=== PATIENT | female | born 1965 | race African-American/Black ===

== ENCOUNTER 2017-09-09 09:39 | Emergency (ER) | payer MEDICAID ==
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
[2017-09-09] MEDS ORDERED: HYDROcodone/Acetaminophen 10/325 mg Tablet ONE (11:46)
[2017-09-09] MEDS ORDERED: Naproxen 500 MG TAB ONE (11:46)
== END 2017-09-09 12:00 | disposition home or self-care (01) ==
LOC: MADERS 09:39
DX: S80.12XA Contusion of left lower leg, initial encounter (principal); S80.11XA Contusion of right lower leg, initial encounter; M79.642 Pain in left hand; I10 Essential (primary) hypertension; M10.9 Gout, unspecified; V49.40XA Driver injured in collision with unspecified motor vehicles in traffic accident, initial encounter; Y92.410 Unspecified street and highway as the place of occurrence of the external cause

== ENCOUNTER 2017-09-14 11:52 | Outpatient (CLI) | payer MEDICARE, OTHER ==
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
== END 2017-09-14 11:53 | disposition home or self-care (01) ==
LOC: MADRAD 11:52
PROVIDERS: ATTEND Family Medicine
DX: M54.5 Low back pain (principal); V89.2XXA Person injured in unspecified motor-vehicle accident, traffic, initial encounter; M47.816 Spondylosis without myelopathy or radiculopathy, lumbar region; I70.0 Atherosclerosis of aorta
CPT/HCPCS: 72110

== ENCOUNTER 2018-10-31 07:04 | Emergency (ER) | payer MEDICARE, MEDICAID ==
[2018-10-31] MEDS ORDERED: Penicillin V Potassium 250 MG TAB ONE (07:30)
[2018-10-31] MEDS ORDERED: Ibuprofen 800 MG TAB ONE (07:30)
== END 2018-10-31 07:40 | disposition home or self-care (01) ==
LOC: MADERS 07:04
DX: K04.7 Periapical abscess without sinus (principal); M10.9 Gout, unspecified; I10 Essential (primary) hypertension; Z79.899 Other long term (current) drug therapy
CPT/HCPCS: 99282

== ENCOUNTER 2019-03-12 07:45 | Emergency (ER) | payer MEDICARE, MEDICAID ==
[2019-03-12 08:21] LABS: Bilirubin Small (Negative); Blood, Urine Large (Negative); Glucose, Urine (Dipstick) Negative (Negative); Leukocyte Small (Negative); Nitrite Negative (Negative); Protein, Urine (Dipstick) 100 mg/dL (Neg-Trace); Urobilinogen 0.2 mg/dL (Less than 2)
[2019-03-12 08:22] LABS: Clarity Cloudy (Clear)
[2019-03-12 08:26] LABS: RBC/HPF Greater than 50 HPF (0-3)
[2019-03-12 08:30] LABS: Bacteria/HPF Rare-Few HPF (None Seen); Trichomonas/HPF Rare HPF (None Seen); WBC/HPF 0-3 HPF (0-3)
== END 2019-03-12 08:45 | disposition home or self-care (01) ==
LOC: MADERS 07:45
DX: A59.01 Trichomonal vulvovaginitis (principal); R31.9 Hematuria, unspecified; Z86.73 Personal history of transient ischemic attack (TIA), and cerebral infarction without residual deficits; I10 Essential (primary) hypertension; M10.9 Gout, unspecified; Z79.899 Other long term (current) drug therapy
CPT/HCPCS: 81003; 81015; 87086; 99283

== ENCOUNTER 2019-03-14 13:34 | Emergency (ER) | payer MEDICARE, OTHER ==
[2019-03-14 14:21] LABS: Bilirubin Moderate (Negative); Blood, Urine Large (Negative); Glucose, Urine (Dipstick) Negative (Negative); Leukocyte Negative (Negative); Nitrite Negative (Negative); Protein, Urine (Dipstick) > or equal to 300 mg/dL (Neg-Trace)
[2019-03-14 14:23] LABS: Clarity Cloudy (Clear)
[2019-03-14 14:25] LABS: RBC/HPF Greater than 50 HPF (0-3)
[2019-03-14 14:27] LABS: Bacteria/HPF Rare-Few HPF (None Seen); Squamous Epithelial 0-3 HPF (0-3); WBC/HPF None Seen HPF (0-3)
[2019-03-14 14:28] LABS: Crystals/HPF 1+ AMORPH URATES HPF (Negative)
[2019-03-14] MEDS ORDERED: HYDROcodone/Acetaminophen 5/325 mg Tablet ONE (14:44)
--- NOTE | 2019-03-14 14:49 | CT ---
CT ABDOMEN AND PELVIS WITHOUT CONTRAST: Date: 03/14/19 HISTORY: Hematuria and back pain since Wednesday, worse on the left side. TECHNIQUE: Multiple contiguous axial images were obtained in a CT of the abdomen and pelvis without contrast. Co jeffrey reformats were performed. FINDINGS: A subcentimeter hypodensity in the right lobe of the liver is too small to definitely characterize, b ut likely represents a cyst. There are hypodensities in the bilateral kidneys measuring up to 2.0 cm in size, which likely represent cysts. There are calcifications in the hilar regions of both kidneys which are likely vascular. No obvious collecting system calcifications are seen. No hydronephrosis is seen. No calcifications are seen along the course of the ureters. The patient is status post hystere ctomy. The gallbladder, adrenal glands, spleen, and pancreas are unremarkable. The large and small bowel are unremarkable. The appendix is normal. No abdominal or pelvic lymphadeno zenia seen. Atherosclerotic calcifications are seen in the aorta. Degenerative changes are seen in the spine. The visualized inferior thorax and abdominal wall soft ti ssues are unremarkable. IMPRESSION: 1. Bilateral renal cysts. 2. Likely small hepatic cyst. POS: [facility]
== END 2019-03-14 15:11 | disposition home or self-care (01) ==
LOC: MADERS 13:34
DX: N28.1 Cyst of kidney, acquired (principal); R31.9 Hematuria, unspecified; I10 Essential (primary) hypertension; M10.9 Gout, unspecified; F17.210 Nicotine dependence, cigarettes, uncomplicated; Z86.73 Personal history of transient ischemic attack (TIA), and cerebral infarction without residual deficits; Z79.899 Other long term (current) drug therapy
CPT/HCPCS: 74176; 81003; 81015

== ENCOUNTER 2020-05-21 10:51 | Outpatient (CLI) | payer MEDICARE, MEDICAID ==
--- NOTE | 2020-05-21 11:18 | RAD ---
XR Knee Lt 3 View HISTORY: Left knee pain FINDINGS: No fracture or dislocation is identified.
--- NOTE | 2020-05-21 11:18 | RAD ---
EXAM: 2 views of the left hip HISTORY: Left hip pain COMPARISON: None FINDINGS: 2 views of the left hip shows no evidence of acute fracture or dislocation. No degenerative changes are seen. No soft tissue swelling is present. Surgical clips are seen in the left inguinal region. Vascular calcifications are seen. IMPRESSION: No evidence of acute osseous abnormality.
== END 2020-05-21 10:52 | disposition home or self-care (01) ==
LOC: MADRAD 10:51
PROVIDERS: ATTEND Family Medicine
DX: M79.605 Pain in left leg (principal)

== ENCOUNTER 2021-05-19 14:15 | Outpatient (CLI) | payer MEDICARE, MEDICAID | END 2021-05-19 14:16 | disposition home or self-care (01) | LOC: MADLAB 14:15 → MADRAD 14:16 | PROVIDERS: ATTEND Family Medicine | DX: M25.561 Pain in right knee (principal); M25.562 Pain in left knee; M25.551 Pain in right hip; M16.11 Unilateral primary osteoarthritis, right hip ==

== ENCOUNTER 2021-10-18 13:59 | Emergency (ER) | payer MEDICARE, OTHER ==
[~2021-10-18 13:59] MED LIST: Iopamidol 370 76% 100 ML VIAL ONE
[2021-10-18] MEDS ORDERED: Sodium Chloride 0.9% 1,000 ML BAG ONE (14:04)
[2021-10-18] MEDS ORDERED: Morphine 4 MG/ML VIAL ONE (15:04)
[2021-10-18 15:11] LABS: #Lymphocytes 0.7 thou/uL (1.20-3.40); #Monocytes 0.4 thou/uL (0.11-0.59); #Neutrophils 8.8 thou/uL (1.40-6.50); %Basophils 0.4 % (0.0-1.0); %Eosinophils 0.1 % (0.0-10.0); %Lymphocytes 6.6 % (21.0-51.0); %Monocytes 3.7 % (0.0-10.0); %Neutrophils 89.2 % (42.0-75.0); Hemoglobin 16.3 g/dL (12.0-16.0); Mean Corpuscular HGB CONC 32.4 g/dL (32.0-36.0); Mean Corpuscular Hemoglobin 30.8 pg (27.0-31.0); Mean Corpuscular Volume 95.1 fL (78.0-98.0); Mean Platelet Volume 7.6 fL (7.4-10.4); Platelet Count 236 thou/uL (130-400); RBC Distribution Width 12.3 % (11.5-14.5); Red Blood Cell (RBC) Count 5.28 mill/uL (4.20-5.40); White Blood Cell (WBC) Count 9.9 thou/uL (4.8-10.8)
[2021-10-18 15:14] LABS: INR-International Normal Ratio 1.1; Prothrombin Time 14.6 sec (12.0-14.7)
[2021-10-18 15:15] LABS: PTT 29.7 sec (22.9-36.1)
[2021-10-18 15:24] LABS: ALT (SGPT) 626 U/L (8-55); AST (SGOT) 2054 U/L (5-34); Albumin 4.1 g/dL (3.5-5.0); Alkaline Phosphatase 100 U/L (40-110); Anion Gap 17 mmol/L (10-20); BUN (Urea Nitrogen) 22 mg/dL (9.8-20.1); Bilirubin, Total 1.2 mg/dL (0.2-1.2); Calc. Creatinine Clearance 0 mL/min (70-130); Calcium 11.4 mg/dL (7.8-10.44); Carbon Dioxide 15 mmol/L (22-29); Chloride 115 mmol/L (98-107); Globulin 4.5 g/dL (2.4-3.5); Glucose 119 mg/dL (70-105); Potassium 4.5 mmol/L (3.5-5.1); Protein, Total 8.6 g/dL (6.0-8.3); Sodium 142 mmol/L (136-145)
[2021-10-18 15:46] LABS: Alcohol Less than 10 mg/dL (Less than 10); Salicylate Less than 8.0 mg/dL (15.0-30.0)
[2021-10-18] MEDS ORDERED: Heparin 10,000 UNITS/ 10 ML VIAL ONE (16:24)
[2021-10-18] MEDS ORDERED: Heparin 25,000 units/D5W 500 ML ONE (16:24)
== END 2021-10-18 17:28 | disposition short-term general hospital (02) ==
LOC: MADERS 13:59
DX: M79.605 Pain in left leg (principal); B17.9 Acute viral hepatitis, unspecified; E83.52 Hypercalcemia; I10 Essential (primary) hypertension; M10.9 Gout, unspecified; F17.210 Nicotine dependence, cigarettes, uncomplicated; Z86.73 Personal history of transient ischemic attack (TIA), and cerebral infarction without residual deficits
CPT/HCPCS: 80053; 80307; 83605; 84450; 84460; 85025; 85610; 85730; 96365; 96375; J1644; J2270; J7050; Q9967

== ENCOUNTER 2021-10-28 16:17 | Inpatient (IN) | payer MEDICARE, OTHER ==
[2021-10-28] MEDS ORDERED: Ondansetron ODT 4 MG TAB PO PRN (20:04)
[2021-10-28] MEDS ORDERED: traMADol HCl 50 MG TAB PO PRN (20:10)
[2021-10-28] MEDS: Metoprolol Tartrate 25 MG TAB PO SCH (20:56)
[2021-10-28] MEDS: traMADol HCl 50 MG TAB PO PRN (20:56)
[2021-10-28] MEDS: Gabapentin 100 MG CAP PO SCH (20:57)
[2021-10-28] MEDS: Famotidine 20 MG TAB PO SCH (20:58)
[2021-10-28] MEDS: Docusate 100 MG CAP PO SCH (20:58)
[2021-10-28] MEDS: Atorvastatin Calcium 40 MG TAB PO SCH (20:58)
[2021-10-29] MEDS: traMADol HCl 50 MG TAB PO PRN ×3 (03:11→21:07)
[2021-10-29] MEDS: Amlodipine 5 MG TAB PO SCH (08:22)
[2021-10-29] MEDS: Docusate 100 MG CAP PO SCH ×2 (08:22→20:53)
[2021-10-29] MEDS: Aspirin 81 mg Enteric Coated Tablet PO SCH (08:22)
[2021-10-29] MEDS: Ferrous Sulfate 325 MG TAB PO SCH ×2 (08:23→17:04)
[2021-10-29] MEDS: Gabapentin 100 MG CAP PO SCH ×3 (08:23→20:53)
[2021-10-29] MEDS: Metoprolol Tartrate 25 MG TAB PO SCH ×2 (08:23→20:53)
[2021-10-29] MEDS: Multivitamin W/ Minerals 1 TAB PO SCH (08:23)
[2021-10-29] MEDS: Clopidogrel Bisulfate 75 MG TAB PO SCH (08:23)
[2021-10-29] MEDS: Mometasone/Formoterol 200/5 60 PUFF INH SCH ×2 (08:24→21:09)
[2021-10-29] MEDS: Polyethylene Glycol 3350 17 GM Packet PO SCH (08:24)
[2021-10-29] MEDS: Famotidine 20 MG TAB PO SCH (20:53)
[2021-10-29] MEDS: Atorvastatin Calcium 40 MG TAB PO SCH (20:54)
[2021-10-30] MEDS: traMADol HCl 50 MG TAB PO PRN ×3 (07:55→21:22)
[2021-10-30] MEDS: Clopidogrel Bisulfate 75 MG TAB PO SCH (07:58)
[2021-10-30] MEDS: Aspirin 81 mg Enteric Coated Tablet PO SCH (07:58)
[2021-10-30] MEDS: Gabapentin 100 MG CAP PO SCH ×2 (07:58→15:38)
[2021-10-30] MEDS: Metoprolol Tartrate 25 MG TAB PO SCH ×2 (07:59→21:21)
[2021-10-30] MEDS: Docusate 100 MG CAP PO SCH ×2 (07:59→21:23)
[2021-10-30] MEDS: Multivitamin W/ Minerals 1 TAB PO SCH (07:59)
[2021-10-30] MEDS: Amlodipine 5 MG TAB PO SCH (07:59)
[2021-10-30] MEDS: Polyethylene Glycol 3350 17 GM Packet PO SCH (07:59)
[2021-10-30] MEDS: Mometasone/Formoterol 200/5 60 PUFF INH SCH ×2 (07:59→21:20)
[2021-10-30] MEDS: Ferrous Sulfate 325 MG TAB PO SCH ×2 (07:59→17:47)
[2021-10-30] MEDS: Gabapentin 300 MG CAP PO SCH (21:21)
[2021-10-30] MEDS: Famotidine 20 MG TAB PO SCH (21:23)
[2021-10-30] MEDS: Atorvastatin Calcium 40 MG TAB PO SCH (21:23)
[2021-10-31] MEDS: traMADol HCl 50 MG TAB PO PRN ×2 (07:40→14:23)
[2021-10-31] MEDS: Acetaminophen 325 MG TAB PO PRN ×2 (07:41→14:23)
[2021-10-31] MEDS: Metoprolol Tartrate 25 MG TAB PO SCH ×2 (08:06→21:38)
[2021-10-31] MEDS: Polyethylene Glycol 3350 17 GM Packet PO SCH (08:06)
[2021-10-31] MEDS: Amlodipine 5 MG TAB PO SCH (08:06)
[2021-10-31] MEDS: Multivitamin W/ Minerals 1 TAB PO SCH (08:07)
[2021-10-31] MEDS: Gabapentin 300 MG CAP PO SCH ×3 (08:07→21:38)
[2021-10-31] MEDS: Clopidogrel Bisulfate 75 MG TAB PO SCH (08:07)
[2021-10-31] MEDS: Aspirin 81 mg Enteric Coated Tablet PO SCH (08:07)
[2021-10-31] MEDS: Docusate 100 MG CAP PO SCH ×2 (08:07→21:38)
[2021-10-31] MEDS: Mometasone/Formoterol 200/5 60 PUFF INH SCH ×2 (08:07→21:40)
[2021-10-31] MEDS: Ferrous Sulfate 325 MG TAB PO SCH ×2 (08:15→17:02)
[2021-10-31] MEDS: Atorvastatin Calcium 40 MG TAB PO SCH (21:38)
[2021-10-31] MEDS: Famotidine 20 MG TAB PO SCH (21:38)
[2021-11-01] MEDS: Mometasone/Formoterol 200/5 60 PUFF INH SCH ×2 (08:42→23:20)
[2021-11-01] MEDS: traMADol HCl 50 MG TAB PO PRN ×3 (08:46→20:46)
[2021-11-01] MEDS: Acetaminophen 325 MG TAB PO PRN ×2 (08:46→15:21)
[2021-11-01] MEDS: Metoprolol Tartrate 25 MG TAB PO SCH ×2 (08:47→20:47)
[2021-11-01] MEDS: Ferrous Sulfate 325 MG TAB PO SCH ×2 (08:47→18:00)
[2021-11-01] MEDS: Clopidogrel Bisulfate 75 MG TAB PO SCH (08:48)
[2021-11-01] MEDS: Amlodipine 5 MG TAB PO SCH (08:48)
[2021-11-01] MEDS: Gabapentin 300 MG CAP PO SCH ×3 (08:48→20:47)
[2021-11-01] MEDS: Docusate 100 MG CAP PO SCH ×2 (08:48→20:45)
[2021-11-01] MEDS: Aspirin 81 mg Enteric Coated Tablet PO SCH (08:48)
[2021-11-01] MEDS: Multivitamin W/ Minerals 1 TAB PO SCH (08:48)
[2021-11-01] MEDS: Polyethylene Glycol 3350 17 GM Packet PO SCH (08:49)
[2021-11-01 14:54] LABS: SARS-CoV-2 PCR by NAA Not Detected (NotDetected)
[2021-11-01] MEDS: Famotidine 20 MG TAB PO SCH (20:45)
[2021-11-01] MEDS: Atorvastatin Calcium 40 MG TAB PO SCH (20:46)
[2021-11-02] MEDS: Acetaminophen 325 MG TAB PO PRN (08:51)
[2021-11-02] MEDS: traMADol HCl 50 MG TAB PO PRN ×2 (08:52→20:46)
[2021-11-02] MEDS: Mometasone/Formoterol 200/5 60 PUFF INH SCH ×2 (08:53→20:48)
[2021-11-02] MEDS: Docusate 100 MG CAP PO SCH ×2 (08:54→20:45)
[2021-11-02] MEDS: Amlodipine 5 MG TAB PO SCH (08:54)
[2021-11-02] MEDS: Multivitamin W/ Minerals 1 TAB PO SCH (08:54)
[2021-11-02] MEDS: Ferrous Sulfate 325 MG TAB PO SCH ×2 (08:55→17:01)
[2021-11-02] MEDS: Gabapentin 300 MG CAP PO SCH ×3 (08:55→20:45)
[2021-11-02] MEDS: Metoprolol Tartrate 25 MG TAB PO SCH ×2 (08:55→20:46)
[2021-11-02] MEDS: Aspirin 81 mg Enteric Coated Tablet PO SCH (08:55)
[2021-11-02] MEDS: Polyethylene Glycol 3350 17 GM Packet PO SCH (08:56)
[2021-11-02] MEDS: Clopidogrel Bisulfate 75 MG TAB PO SCH (08:56)
[2021-11-02] MEDS: Famotidine 20 MG TAB PO SCH (20:45)
[2021-11-02] MEDS: Atorvastatin Calcium 40 MG TAB PO SCH (20:46)
[2021-11-03] MEDS: traMADol HCl 50 MG TAB PO PRN ×2 (04:38→13:08)
[2021-11-03] MEDS: Clopidogrel Bisulfate 75 MG TAB PO SCH (09:18)
[2021-11-03] MEDS: Amlodipine 5 MG TAB PO SCH (09:18)
[2021-11-03] MEDS: Metoprolol Tartrate 25 MG TAB PO SCH ×2 (09:18→21:02)
[2021-11-03] MEDS: Ferrous Sulfate 325 MG TAB PO SCH ×2 (09:18→17:29)
[2021-11-03] MEDS: Multivitamin W/ Minerals 1 TAB PO SCH (09:19)
[2021-11-03] MEDS: Docusate 100 MG CAP PO SCH ×3 (09:19→21:05)
[2021-11-03] MEDS: Gabapentin 300 MG CAP PO SCH ×3 (09:19→21:01)
[2021-11-03] MEDS: Mometasone/Formoterol 200/5 60 PUFF INH SCH ×2 (09:20→21:02)
[2021-11-03] MEDS: Aspirin 81 mg Enteric Coated Tablet PO SCH (09:20)
[2021-11-03] MEDS: Polyethylene Glycol 3350 17 GM Packet PO SCH (09:20)
[2021-11-03] MEDS: Acetaminophen 325 MG TAB PO PRN ×2 (09:23→15:43)
[2021-11-03] MEDS: Famotidine 20 MG TAB PO SCH (21:01)
[2021-11-03] MEDS: Atorvastatin Calcium 40 MG TAB PO SCH (21:02)
[2021-11-04] MEDS: traMADol HCl 50 MG TAB PO PRN ×2 (05:04→14:06)
[2021-11-04] MEDS: Acetaminophen 325 MG TAB PO PRN ×2 (05:04→14:07)
[2021-11-04] MEDS: Gabapentin 300 MG CAP PO SCH ×3 (08:49→20:57)
[2021-11-04] MEDS: Docusate 100 MG CAP PO SCH ×2 (08:49→20:57)
[2021-11-04] MEDS: Polyethylene Glycol 3350 17 GM Packet PO SCH (08:49)
[2021-11-04] MEDS: Amlodipine 5 MG TAB PO SCH (08:50)
[2021-11-04] MEDS: Clopidogrel Bisulfate 75 MG TAB PO SCH (08:50)
[2021-11-04] MEDS: Aspirin 81 mg Enteric Coated Tablet PO SCH (08:50)
[2021-11-04] MEDS: Metoprolol Tartrate 25 MG TAB PO SCH ×2 (08:50→20:58)
[2021-11-04] MEDS: Multivitamin W/ Minerals 1 TAB PO SCH (08:50)
[2021-11-04] MEDS: Mometasone/Formoterol 200/5 60 PUFF INH SCH ×2 (08:52→21:02)
[2021-11-04] MEDS: Ferrous Sulfate 325 MG TAB PO SCH ×2 (08:55→17:49)
[2021-11-04 17:22] LABS: #Basophils 0.1 thou/uL (0.0-0.2); #Eosinphils 0.1 thou/uL (0.0-0.7); #Monocytes 0.6 thou/uL (0.11-0.59); #Neutrophils 4.4 thou/uL (1.40-6.50); %Basophils 0.9 % (0.0-1.0); %Eosinophils 1.8 % (0.0-10.0); %Monocytes 8.3 % (0.0-10.0); Hemoglobin 10.4 g/dL (12.0-16.0); Mean Corpuscular HGB CONC 32.7 g/dL (32.0-36.0); Mean Corpuscular Hemoglobin 31.4 pg (27.0-31.0); Mean Corpuscular Volume 96.1 fL (78.0-98.0); Mean Platelet Volume 6.9 fL (7.4-10.4); Platelet Count 382 thou/uL (130-400); RBC Distribution Width 12.8 % (11.5-14.5); Red Blood Cell (RBC) Count 3.31 mill/uL (4.20-5.40); White Blood Cell (WBC) Count 7.2 thou/uL (4.8-10.8)
[2021-11-04 17:38] LABS: PTT 32.4 sec (22.9-36.1); Prothrombin Time 13.7 sec (12.0-14.7)
[2021-11-04] MEDS: Famotidine 20 MG TAB PO SCH (20:57)
[2021-11-04] MEDS: Atorvastatin Calcium 40 MG TAB PO SCH (20:58)
[2021-11-05] MEDS: Mometasone/Formoterol 200/5 60 PUFF INH SCH ×2 (09:03→20:39)
[2021-11-05] MEDS: Acetaminophen 325 MG TAB PO PRN ×2 (09:03→16:02)
[2021-11-05] MEDS: traMADol HCl 50 MG TAB PO PRN ×2 (09:04→16:03)
[2021-11-05] MEDS: Gabapentin 300 MG CAP PO SCH ×3 (09:04→20:38)
[2021-11-05] MEDS: Clopidogrel Bisulfate 75 MG TAB PO SCH (09:04)
[2021-11-05] MEDS: Aspirin 81 mg Enteric Coated Tablet PO SCH (09:04)
[2021-11-05] MEDS: Metoprolol Tartrate 25 MG TAB PO SCH ×2 (09:05→20:38)
[2021-11-05] MEDS: Amlodipine 5 MG TAB PO SCH (09:05)
[2021-11-05] MEDS: Multivitamin W/ Minerals 1 TAB PO SCH (09:05)
[2021-11-05] MEDS: Ferrous Sulfate 325 MG TAB PO SCH ×2 (09:05→16:04)
[2021-11-05] MEDS: Polyethylene Glycol 3350 17 GM Packet PO SCH (09:06)
[2021-11-05] MEDS: Docusate 100 MG CAP PO SCH ×2 (09:06→20:39)
[2021-11-05] MEDS: Famotidine 20 MG TAB PO SCH (20:38)
[2021-11-05] MEDS: Atorvastatin Calcium 40 MG TAB PO SCH (20:38)
[2021-11-06] MEDS: traMADol HCl 50 MG TAB PO PRN ×3 (08:17→20:57)
[2021-11-06] MEDS: Acetaminophen 325 MG TAB PO PRN ×2 (08:18→14:39)
[2021-11-06] MEDS: Mometasone/Formoterol 200/5 60 PUFF INH SCH ×2 (08:34→20:57)
[2021-11-06] MEDS: Multivitamin W/ Minerals 1 TAB PO SCH (08:35)
[2021-11-06] MEDS: Gabapentin 300 MG CAP PO SCH ×3 (08:35→20:54)
[2021-11-06] MEDS: Amlodipine 5 MG TAB PO SCH (08:35)
[2021-11-06] MEDS: Ferrous Sulfate 325 MG TAB PO SCH ×2 (08:36→17:11)
[2021-11-06] MEDS: Aspirin 81 mg Enteric Coated Tablet PO SCH (08:36)
[2021-11-06] MEDS: Docusate 100 MG CAP PO SCH ×3 (08:36→20:55)
[2021-11-06] MEDS: Clopidogrel Bisulfate 75 MG TAB PO SCH (08:36)
[2021-11-06] MEDS: Metoprolol Tartrate 25 MG TAB PO SCH ×2 (08:36→20:54)
[2021-11-06] MEDS: Polyethylene Glycol 3350 17 GM Packet PO SCH (08:42)
[2021-11-06] MEDS: Famotidine 20 MG TAB PO SCH (20:54)
[2021-11-06] MEDS: Atorvastatin Calcium 40 MG TAB PO SCH (20:55)
[2021-11-07] MEDS: Mometasone/Formoterol 200/5 60 PUFF INH SCH ×2 (07:57→22:00)
[2021-11-07] MEDS: Gabapentin 300 MG CAP PO SCH ×3 (07:57→20:19)
[2021-11-07] MEDS: Ferrous Sulfate 325 MG TAB PO SCH ×2 (07:57→16:35)
[2021-11-07] MEDS: Metoprolol Tartrate 25 MG TAB PO SCH ×2 (07:58→20:19)
[2021-11-07] MEDS: Amlodipine 5 MG TAB PO SCH (07:58)
[2021-11-07] MEDS: Multivitamin W/ Minerals 1 TAB PO SCH (07:58)
[2021-11-07] MEDS: Docusate 100 MG CAP PO SCH ×3 (07:58→20:54)
[2021-11-07] MEDS: Polyethylene Glycol 3350 17 GM Packet PO SCH (07:58)
[2021-11-07] MEDS: Clopidogrel Bisulfate 75 MG TAB PO SCH (07:58)
[2021-11-07] MEDS: Aspirin 81 mg Enteric Coated Tablet PO SCH (07:58)
[2021-11-07] MEDS: traMADol HCl 50 MG TAB PO PRN ×3 (08:04→21:59)
[2021-11-07] MEDS: Famotidine 20 MG TAB PO SCH ×2 (20:19→20:54)
[2021-11-07] MEDS: Atorvastatin Calcium 40 MG TAB PO SCH (20:19)
[2021-11-07] MEDS: Acetaminophen 325 MG TAB PO PRN (20:32)
[2021-11-08] MEDS: traMADol HCl 50 MG TAB PO PRN ×2 (06:18→20:39)
[2021-11-08] MEDS: Mometasone/Formoterol 200/5 60 PUFF INH SCH ×2 (08:57→20:33)
[2021-11-08] MEDS: Docusate 100 MG CAP PO SCH ×2 (08:58→20:35)
[2021-11-08] MEDS: Amlodipine 5 MG TAB PO SCH (08:58)
[2021-11-08] MEDS: Aspirin 81 mg Enteric Coated Tablet PO SCH (08:58)
[2021-11-08] MEDS: Polyethylene Glycol 3350 17 GM Packet PO SCH (08:59)
[2021-11-08] MEDS: Gabapentin 300 MG CAP PO SCH ×3 (08:59→20:37)
[2021-11-08] MEDS: Multivitamin W/ Minerals 1 TAB PO SCH (08:59)
[2021-11-08] MEDS: Metoprolol Tartrate 25 MG TAB PO SCH ×2 (08:59→20:35)
[2021-11-08] MEDS: Ferrous Sulfate 325 MG TAB PO SCH ×2 (08:59→17:54)
[2021-11-08] MEDS: Clopidogrel Bisulfate 75 MG TAB PO SCH (08:59)
[2021-11-08 18:33] LABS: SARS-CoV-2 PCR by NAA Not Detected (NotDetected)
[2021-11-08] MEDS: Famotidine 20 MG TAB PO SCH (20:33)
[2021-11-08] MEDS: Atorvastatin Calcium 40 MG TAB PO SCH (20:35)
[2021-11-09] MEDS: Mometasone/Formoterol 200/5 60 PUFF INH SCH ×2 (09:36→20:00)
[2021-11-09] MEDS: Polyethylene Glycol 3350 17 GM Packet PO SCH (09:37)
[2021-11-09] MEDS: Gabapentin 300 MG CAP PO SCH ×3 (09:38→19:58)
[2021-11-09] MEDS: Amlodipine 5 MG TAB PO SCH (09:38)
[2021-11-09] MEDS: Metoprolol Tartrate 25 MG TAB PO SCH ×2 (09:38→19:58)
[2021-11-09] MEDS: Multivitamin W/ Minerals 1 TAB PO SCH (09:38)
[2021-11-09] MEDS: Ferrous Sulfate 325 MG TAB PO SCH ×2 (09:38→17:16)
[2021-11-09] MEDS: Aspirin 81 mg Enteric Coated Tablet PO SCH (09:38)
[2021-11-09] MEDS: Clopidogrel Bisulfate 75 MG TAB PO SCH (09:38)
[2021-11-09] MEDS: Docusate 100 MG CAP PO SCH ×2 (09:38→19:59)
[2021-11-09] MEDS: traMADol HCl 50 MG TAB PO PRN (19:58)
[2021-11-09] MEDS: Atorvastatin Calcium 40 MG TAB PO SCH (19:58)
[2021-11-09] MEDS: Famotidine 20 MG TAB PO SCH (19:59)
[2021-11-10] MEDS: Ferrous Sulfate 325 MG TAB PO SCH ×2 (09:22→17:24)
[2021-11-10] MEDS: Clopidogrel Bisulfate 75 MG TAB PO SCH (09:22)
[2021-11-10] MEDS: Gabapentin 300 MG CAP PO SCH ×3 (09:22→21:14)
[2021-11-10] MEDS: Amlodipine 5 MG TAB PO SCH (09:22)
[2021-11-10] MEDS: Docusate 100 MG CAP PO SCH ×2 (09:23→21:14)
[2021-11-10] MEDS: Multivitamin W/ Minerals 1 TAB PO SCH (09:23)
[2021-11-10] MEDS: Metoprolol Tartrate 25 MG TAB PO SCH ×2 (09:23→21:19)
[2021-11-10] MEDS: traMADol HCl 50 MG TAB PO PRN ×2 (09:23→21:19)
[2021-11-10] MEDS: Aspirin 81 mg Enteric Coated Tablet PO SCH (09:23)
[2021-11-10] MEDS: Mometasone/Formoterol 200/5 60 PUFF INH SCH ×2 (09:26→21:13)
[2021-11-10] MEDS: Polyethylene Glycol 3350 17 GM Packet PO SCH (09:27)
[2021-11-10 12:21] VITALS: BMI 26.2
[2021-11-10] MEDS: Atorvastatin Calcium 40 MG TAB PO SCH (21:13)
[2021-11-10] MEDS: Famotidine 20 MG TAB PO SCH (21:14)
[2021-11-11 05:32] LABS: #Basophils 0.1 thou/uL (0.0-0.2); #Eosinphils 0.1 thou/uL (0.0-0.7); #Lymphocytes 3.3 thou/uL (1.20-3.40); #Monocytes 0.8 thou/uL (0.11-0.59); #Neutrophils 3.5 thou/uL (1.40-6.50); %Basophils 0.9 % (0.0-1.0); %Eosinophils 1.8 % (0.0-10.0); %Monocytes 10.2 % (0.0-10.0); %Neutrophils 45.1 % (42.0-75.0); Hemoglobin 11.7 g/dL (12.0-16.0); Mean Corpuscular HGB CONC 32.7 g/dL (32.0-36.0); Mean Corpuscular Hemoglobin 31.2 pg (27.0-31.0); Mean Corpuscular Volume 95.5 fL (78.0-98.0); Mean Platelet Volume 7.1 fL (7.4-10.4); Platelet Count 309 thou/uL (130-400); RBC Distribution Width 13.1 % (11.5-14.5); Red Blood Cell (RBC) Count 3.76 mill/uL (4.20-5.40); White Blood Cell (WBC) Count 7.7 thou/uL (4.8-10.8)
[2021-11-11 05:47] LABS: Anion Gap 15 mmol/L (10-20); BUN (Urea Nitrogen) 19 mg/dL (9.8-20.1); Calc. Creatinine Clearance 38 mL/min (70-130); Calcium 11.3 mg/dL (7.8-10.44); Carbon Dioxide 20 mmol/L (22-29); Chloride 112 mmol/L (98-107); Glucose 99 mg/dL (70-105); Potassium 4.9 mmol/L (3.5-5.1); Sodium 142 mmol/L (136-145)
[2021-11-11] MEDS: Aspirin 81 mg Enteric Coated Tablet PO SCH (08:10)
[2021-11-11] MEDS: Mometasone/Formoterol 200/5 60 PUFF INH SCH ×2 (08:10→20:48)
[2021-11-11] MEDS: Acetaminophen 325 MG TAB PO PRN ×3 (08:10→20:52)
[2021-11-11] MEDS: Polyethylene Glycol 3350 17 GM Packet PO SCH (08:10)
[2021-11-11] MEDS: traMADol HCl 50 MG TAB PO PRN ×3 (08:11→20:49)
[2021-11-11] MEDS: Amlodipine 5 MG TAB PO SCH (08:12)
[2021-11-11] MEDS: Ferrous Sulfate 325 MG TAB PO SCH ×2 (08:12→17:08)
[2021-11-11] MEDS: Gabapentin 300 MG CAP PO SCH ×3 (08:12→20:51)
[2021-11-11] MEDS: Multivitamin W/ Minerals 1 TAB PO SCH (08:12)
[2021-11-11] MEDS: Clopidogrel Bisulfate 75 MG TAB PO SCH (08:13)
[2021-11-11] MEDS: Docusate 100 MG CAP PO SCH ×2 (08:13→20:53)
[2021-11-11] MEDS: Metoprolol Tartrate 25 MG TAB PO SCH ×2 (08:13→20:51)
[2021-11-11] MEDS: Atorvastatin Calcium 40 MG TAB PO SCH (20:53)
[2021-11-11] MEDS: Famotidine 20 MG TAB PO SCH (20:56)
[2021-11-12] MEDS: Mometasone/Formoterol 200/5 60 PUFF INH SCH ×2 (08:16→21:43)
[2021-11-12] MEDS: Acetaminophen 325 MG TAB PO PRN ×3 (08:18→21:49)
[2021-11-12] MEDS: Gabapentin 300 MG CAP PO SCH ×3 (08:18→21:48)
[2021-11-12] MEDS: traMADol HCl 50 MG TAB PO PRN ×4 (08:19→21:46)
[2021-11-12] MEDS: Clopidogrel Bisulfate 75 MG TAB PO SCH (08:20)
[2021-11-12] MEDS: Metoprolol Tartrate 25 MG TAB PO SCH ×2 (08:20→21:45)
[2021-11-12] MEDS: Multivitamin W/ Minerals 1 TAB PO SCH (08:20)
[2021-11-12] MEDS: Amlodipine 5 MG TAB PO SCH (08:20)
[2021-11-12] MEDS: Aspirin 81 mg Enteric Coated Tablet PO SCH (08:20)
[2021-11-12] MEDS: Ferrous Sulfate 325 MG TAB PO SCH ×2 (08:20→17:15)
[2021-11-12] MEDS: Docusate 100 MG CAP PO SCH ×2 (08:21→21:49)
[2021-11-12] MEDS: Polyethylene Glycol 3350 17 GM Packet PO SCH (08:24)
[2021-11-12] MEDS: Atorvastatin Calcium 40 MG TAB PO SCH (21:49)
[2021-11-12] MEDS: Famotidine 20 MG TAB PO SCH (21:49)
[2021-11-13 07:35] VITALS: BP 116/75; TEMP 97.8
[2021-11-13] MEDS: Polyethylene Glycol 3350 17 GM Packet PO SCH (09:23)
[2021-11-13] MEDS: Aspirin 81 mg Enteric Coated Tablet PO SCH (09:24)
[2021-11-13] MEDS: Clopidogrel Bisulfate 75 MG TAB PO SCH (09:24)
[2021-11-13] MEDS: Amlodipine 5 MG TAB PO SCH (09:24)
[2021-11-13] MEDS: Gabapentin 300 MG CAP PO SCH (09:24)
[2021-11-13] MEDS: Docusate 100 MG CAP PO SCH (09:24)
[2021-11-13] MEDS: Ferrous Sulfate 325 MG TAB PO SCH (09:24)
[2021-11-13] MEDS: Metoprolol Tartrate 25 MG TAB PO SCH (09:25)
[2021-11-13] MEDS: Mometasone/Formoterol 200/5 60 PUFF INH SCH (09:26)
[2021-11-13] MEDS: Multivitamin W/ Minerals 1 TAB PO SCH (09:27)
== END 2021-11-13 14:43 | disposition home or self-care (01) | DRG 949 ==
LOC: MADMS 16:26
PROVIDERS: ADMIT Family Medicine; ATTEND Family Medicine
DX: Z48.812 Encounter for surgical aftercare following surgery on the circulatory system (principal); I69.359 Hemiplegia and hemiparesis following cerebral infarction affecting unspecified side; Z20.822 Contact with and (suspected) exposure to COVID-19; I99.8 Other disorder of circulatory system; I73.9 Peripheral vascular disease, unspecified; E78.5 Hyperlipidemia, unspecified; I12.9 Hypertensive chronic kidney disease with stage 1 through stage 4 chronic kidney disease, or unspecified chronic kidney disease; N18.32 Chronic kidney disease, stage 3b; R45.4 Irritability and anger; M10.9 Gout, unspecified; G89.18 Other acute postprocedural pain; R26.81 Unsteadiness on feet; F17.290 Nicotine dependence, other tobacco product, uncomplicated; I69.398 Other sequelae of cerebral infarction; Z79.82 Long term (current) use of aspirin; Z79.899 Other long term (current) drug therapy; Z90.710 Acquired absence of both cervix and uterus; Z98.890 Other specified postprocedural states
CPT/HCPCS: 36415; 80048; 85025; 85610; 85730; 94664; J7620; U0003; U0005

== ENCOUNTER 2022-03-18 16:55 | Outpatient (CLI) | payer MEDICARE, OTHER ==
[2022-03-18 19:12] LABS: #Eosinphils 0.1 thou/uL (0.0-0.7); #Lymphocytes 2.5 thou/uL (1.20-3.40); #Monocytes 0.6 thou/uL (0.11-0.59); #Neutrophils 5.3 thou/uL (1.40-6.50); %Basophils 0.4 % (0.0-1.0); %Eosinophils 0.7 % (0.0-10.0); %Lymphocytes 29.6 % (21.0-51.0); %Monocytes 6.9 % (0.0-10.0); %Neutrophils 62.4 % (42.0-75.0); Hemoglobin 14.2 g/dL (12.0-16.0); Mean Corpuscular HGB CONC 31.9 g/dL (32.0-36.0); Mean Corpuscular Hemoglobin 29.9 pg (27.0-31.0); Mean Corpuscular Volume 93.8 fL (78.0-98.0); Mean Platelet Volume 7.9 fL (7.4-10.4); Platelet Count 253 thou/uL (130-400); RBC Distribution Width 12.7 % (11.5-14.5); Red Blood Cell (RBC) Count 4.75 mill/uL (4.20-5.40); White Blood Cell (WBC) Count 8.5 thou/uL (4.8-10.8)
[2022-03-18 19:17] LABS: ALT (SGPT) 27 U/L (8-55); AST (SGOT) 34 U/L (5-34); Albumin 3.4 g/dL (3.5-5.0); Alkaline Phosphatase 100 U/L (40-110); Anion Gap 15 mmol/L (10-20); BUN (Urea Nitrogen) 19 mg/dL (9.8-20.1); Bilirubin, Total 0.5 mg/dL (0.2-1.2); Calc. Creatinine Clearance 0 mL/min (70-130); Calcium 11.2 mg/dL (7.8-10.44); Carbon Dioxide 22 mmol/L (22-29); Chloride 110 mmol/L (98-107); Estimated GFR 40; Globulin 4.6 g/dL (2.4-3.5); Glucose 74 mg/dL (70-105); Sodium 142 mmol/L (136-145)
== END 2022-03-18 16:56 | disposition home or self-care (01) ==
LOC: MADLAB 16:55
PROVIDERS: ATTEND Family Medicine
DX: I73.9 Peripheral vascular disease, unspecified (principal); M79.89 Other specified soft tissue disorders
CPT/HCPCS: 80053; 84443; 85025

== ENCOUNTER 2022-04-25 11:41 | Emergency (ER) | payer MEDICARE, OTHER ==
[2022-04-25] MEDS ORDERED: Doxycycline 100 MG CAP ONE (13:04)
== END 2022-04-25 13:11 | disposition home or self-care (01) ==
LOC: MADERS 11:41
DX: U07.1 COVID-19 (principal); J20.8 Acute bronchitis due to other specified organisms; I10 Essential (primary) hypertension; M10.9 Gout, unspecified; G62.9 Polyneuropathy, unspecified; F17.210 Nicotine dependence, cigarettes, uncomplicated; Z86.73 Personal history of transient ischemic attack (TIA), and cerebral infarction without residual deficits; Z79.899 Other long term (current) drug therapy
CPT/HCPCS: 99283; U0003; U0005

== ENCOUNTER 2022-07-16 13:33 | Emergency (ER) | payer OTHER ==
[2022-07-16] MEDS ORDERED: Acetaminophen 500 MG TAB ONE (15:02)
[2022-07-16 15:07] LABS: #Basophils 0.1 thou/uL (0.0-0.2); #Eosinphils 0.1 thou/uL (0.0-0.7); #Lymphocytes 2.7 thou/uL (1.20-3.40); #Monocytes 1.1 thou/uL (0.11-0.59); #Neutrophils 8.8 thou/uL (1.40-6.50); %Eosinophils 0.8 % (0.0-10.0); %Lymphocytes 20.9 % (21.0-51.0); %Monocytes 8.3 % (0.0-10.0); Hemoglobin 13.5 g/dL (12.0-16.0); Mean Corpuscular HGB CONC 32.4 g/dL (32.0-36.0); Mean Corpuscular Hemoglobin 30.7 pg (27.0-31.0); Mean Corpuscular Volume 94.7 fl (78.0-98.0); Mean Platelet Volume 8.3 fL (7.4-10.4); Platelet Count 278 10x3/uL (130-400); RBC Distribution Width 11.6 % (11.5-14.5); Red Blood Cell (RBC) Count 4.41 mill/uL (4.20-5.40); White Blood Cell (WBC) Count 12.7 10x3/uL (4.8-10.8)
[2022-07-16 15:13] LABS: Base Excess-Venous -0.5 mmol/L (-2.0 to 3.0); Bicarbonate (HCO3v) 24.7 mmol/L (22.0-28.0); CO2 Tension (PvCO2) 41.6 mmHg (42.0-51.0); Calcium, Ionized 1.35 mmol/L (1.15-1.33); Chloride 109 mmol/L (98-107); Hemoglobin - Calc 16.3 g/dL (12.0-16.0); Potassium 4.1 mmol/L (3.5-5.1); Sodium 143 mmol/L (138-145); vO2 Saturation-calc 34.8 % (60.0-85.0)
[2022-07-16 15:21] LABS: ALT (SGPT) 13 U/L (8-55); AST (SGOT) 20 U/L (5-34); Albumin 3.3 g/dL (3.5-5.0); Alkaline Phosphatase 71 U/L (40-110); Anion Gap 14 mmol/L (10-20); BUN (Urea Nitrogen) 26 mg/dL (9.8-20.1); Bilirubin, Total 0.7 mg/dL (0.2-1.2); Calc. Creatinine Clearance 0 mL/min (70-130); Calcium 10.1 mg/dL (7.8-10.44); Carbon Dioxide 24 mmol/L (22-29); Chloride 105 mmol/L (98-107); Estimated GFR 26; Globulin 4.7 g/dL (2.4-3.5); Glucose 103 mg/dL (70-105); Sodium 139 mmol/L (136-145)
[2022-07-16 15:43] LABS: CKMB 1.1 ng/mL (0-6.6)
[2022-07-16] MEDS ORDERED: Enoxaparin Sodium 80 MG/0.8 ML SYRINGE ONE (16:06)
[2022-07-16] MEDS ORDERED: Sodium Chloride 0.9% 1,000 ML ONE (16:20)
== END 2022-07-16 17:47 | disposition short-term general hospital (02) ==
LOC: MADERS 13:33
DX: I26.99 Other pulmonary embolism without acute cor pulmonale (principal); I10 Essential (primary) hypertension; F17.210 Nicotine dependence, cigarettes, uncomplicated; Z79.899 Other long term (current) drug therapy
CPT/HCPCS: 71045; 80053; 82330; 82553; 82803; 83880; 84484; 85025; 85379; 93005; 96372; J1650; J7050; J7620